=== PATIENT | female | born 1975 | race Caucasian/White ===

== ENCOUNTER 2017-04-25 17:58 | Emergency (ER) | payer SELFPAY ==
[2017-04-25 20:02] VITALS: BP 92/60
[2017-04-25] MEDS ORDERED: Cephalexin CAP* 500 MG PO ONE (20:26)
--- NOTE | 2017-04-25 20:26 | UC ---
Skin Complaint HPI - HPI Summary HPI Summary: 42 yo female with a 2 day hx of progressively worsening right inner thigh redness/swelling and pain feverish and chills no CP or SOB remote hx of IVDA with tricuspid endocarditis - History of Current Complaint Chief Complaint: UCSkin Time Seen by Provider: 04/25/17 20:04 Stated Complaint: LUMP ON LEG Hx Obtained From: Patient Hx Last Menstrual Period: one week ago Onset/Duration: Gradual Onset, Lasting Days Onset Severity: Mild Current Severity: Moderate Pain Intensity: 6 Pain Scale Used: 0-10 Numeric Character: Swelling, Pain, Redness, Raised, Painful Aggravating Factor(s): Touch, Other - wt bearing Associated Signs & Symptoms: Positive: Rash - Allergy/Home Medications Allergies/Adverse Reactions: Allergies Allergy/AdvReac Type Severity Reaction Status Date / Time No Known Allergies Allergy Verified 04/25/17 18:15 Review of Systems Constitutional: Negative Skin: Negative Eyes: Negative ENT: Negative Respiratory: Negative Cardiovascular: Negative Gastrointestinal: Negative Genitourinary: Negative Motor: Negative Neurovascular: Negative Musculoskeletal: Negative Neurological: Negative Psychological: Negative Is Patient Immunocompromised?: No All Other Systems Reviewed And Are Negative: Yes PMH/Surg Hx/FS Hx/Imm Hx Previously Healthy: Yes Cardiovascular History: 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 Other History Of: Negative For: Anticoagulant Therapy - Surgical History Surgical History: Yes Surgery Procedure, Year, and Place: wound drained by [facility] , bronchoscopy, mediastinoscopies, debridements - Social History Alcohol Use: Rare Substance Use Type: None Substance Use Comment - Amount & Last Used: Not now, past use,heroin, 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 Smoking Status (MU): Current Every Day Smoker Type: Cigarettes Amount Used/How Often: 1/2 ppd, 5-10 cigs per day Length of Time of Smoking/Using Tobacco: 20 YEARS Have You Smoked in the Last Year: Yes Household Exposure Type: Cigarettes - Immunization History Most Recent Influenza Vaccination: n/a Most Recent Tetanus Shot: pt thinks within 10 yrs Most Recent Pneumonia Vaccination: n/a Physical Exam Triage Information Reviewed: Yes Appearance: Well-Appearing, No Pain Distress, Well-Nourished Vital Signs: Initial Vital Signs Temp 98.8 F 04/25/17 18:10 Pulse 85 04/25/17 18:10 Resp 18 04/25/17 18:10 BP 126/73 04/25/17 18:10 Pulse Ox 100 04/25/17 18:10 Vital Signs Reviewed: Yes Eyes: Positive: Conjunctiva Clear ENT: Positive: Hearing grossly normal. Negative: Nasal congestion, Nasal drainage, Muffled voice, Uvula midline Neck: Positive: Supple, Nontender, No Lymphadenopathy Respiratory: Positive: Lungs clear, Normal breath sounds, No respiratory distress Cardiovascular: Positive: RRR, No Murmur. Negative: Tachycardia, Bradycardia Musculoskeletal: Positive: Other: - see image Course/Dx - Course Course Of Treatment: I discussed my concerns with patient. Most worrisome in the differential of this patient are DVT and deep thigh infection. I explained she should go to the ER for a higher level of care. She refuses EMS transfer. Aware of the risk of fatal PE or sepsis should one of these be the cause of her symptoms. She states she will go to the ER tonight - Diagnoses Provider Diagnoses: right thigh redness and swelling of uncertain cause. ?DVT Discharge - Discharge Plan Condition: Guarded Disposition: AGAINST MEDICAL ADVICE Referrals: No Primary Care Phys,NOPCP [Primary Care Provider] - Additional Instructions: please go directly to the ER for evaluation You may have a DVT (deep venous thrombosis) which can lead to a pulmonary embolism (potentially life threatening) Images Front/Back of Body, Lg ([place]): 1 - 15 cm cephalad to patella. Right thigh 49 cm. left thigh 44 cm 2 - ? palpable varix 3 - warm and erthyematous
== END 2017-04-25 20:20 | disposition left against medical advice (07) ==
LOC: UCEAST 17:58
DX: R23.8 Other skin changes (principal); R22.41 Localized swelling, mass and lump, right lower limb; Z72.0 Tobacco use
CPT/HCPCS: 99212; A9270-GY; G0463

== ENCOUNTER 2017-04-26 09:36 | Emergency (ER) | payer SELFPAY ==
--- NOTE | 2017-04-26 11:42 | RAD ---
INDICATION: Soft tissue swell medial right thigh COMPARISON: None TECHNIQUE: Transverse and longitudinal scans of the medial right thigh were performed utilizing grayscale and color Doppler imaging. FINDINGS: The right saphenous is thrombosed at the imaged level. The thrombosis extends to the saphenofemoral junction but the imaged deep venous system (the common femoral vein) is patent. IMPRESSION: THROMBOSIS OF THE GREAT SAPHENOUS VEIN EXTENDING TO THE SAPHENOFEMORAL JUNCTION CONSISTENT WITH SUPERFICIAL THROMBOPHLEBITIS. IF THERE IS CONCERN FOR DEEP VENOUS THROMBOSIS, SUGGEST LOWER EXTREMITY DUPLEX IMAGING.
[2017-04-26 11:59] LABS: Hematocrit 40 % (35-47); Hemoglobin 13.5 g/dl (12.0-16.0); Mean Corpuscular HGB Conc 34 g/dl (31-36); Mean Corpuscular Hemoglobin 29 pg (27-31); Mean Corpuscular Volume 86 fL (80-97); Mean Platelet Volume 7 um3 (7.4-10.4); Red Cell Distribution Width 14 % (10.5-15)
[2017-04-26 12:11] LABS: ALT 8 U/L (7-52); AST 10 U/L (13-39); Albumin 3.7 g/dL (3.2-5.2); Alkaline Phosphatase 47 U/L (34-104); Anion Gap 4 mmol/L (2-11); BUN/Creatinine Ratio 22.7 (8-20); Blood Urea Nitrogen 17 mg/dL (6-24); C Reactive Protein 21.65 mg/L (< 5.00); CO2 Carbon Dioxide 27 mmol/L (22-32); Calcium 9.2 mg/dL (8.6-10.3); Chloride 105 mmol/L (101-111); EGFR African American 110.1 (>60); EGFR Non-African American 85.6 (>60); Globulin 3.3 g/dL (2-4); Glucose 100 mg/dL (70-100); Potassium 4.1 mmol/L (3.5-5.0); Sodium 136 mmol/L (133-145)
--- NOTE | 2017-04-26 12:56 | RAD ---
INDICATION: Right-sided saphenofemoral junction thrombosis. COMPARISON: Soft tissue sonogram same date. TECHNIQUE: Duplex interrogation of the right lowerextremity was performed. The contralateral saphenofemoral junction was interrogated as well. FINDINGS: Deep veins: The common femoral, great saphenous, profunda femoris, proximal, mid, and distal deep femoral, popliteal, posterior tibial, and peroneal veins are patent. There is normal compressibility, augmentation, and phasic flow. Superficial veins: There is thrombus within the right great saphenous at the saphenofemoral junction. This is bilateral. Popliteal fossa:There is no evidence of a popliteal cyst. Soft tissues:There are no soft tissue abnormalities. IMPRESSION: NO EVIDENCE OF DEEP VENOUS THROMBOSIS. BILATERAL SAPHENOFEMORAL JUNCTION THROMBOSIS WITHOUT EXTENSION INTO COMMON FEMORAL VEIN. THIS PATIENT IS AT RISK FOR EXTENSION INTO THE COMMON FEMORAL VEIN (DVT) AND THEREFORE CLOSE FOLLOW-UP VERSUS ANTICOAGULATION SHOULD BE CONSIDERED.
--- NOTE | 2017-04-26 14:11 | ED ---
Chandrika Mckeon Emily, scribed for Aristeo Leger MD on 04/26/17 at 1200 . Lower Extremity - HPI Summary HPI Summary: This patient is a 42 year old F presenting to [facility] with a chief complaint of painful lump on upper RLE that began 2 days ago. The patient rates the pain 6/ 10 in severity. Symptoms aggravated by nothing. Symptoms alleviated by nothing. Patient reports fever and nasal drainage. Patient denies CP and SOB. Pt denies any recent long distance travel. Pt reports sick contacts at home. Medications reviewed. - History of Current Complaint Chief Complaint: EDExtremityLower Stated Complaint: ULTRASOUND-CC LAST NIGHT Time Seen by Provider: 04/26/17 11:50 Hx Obtained From: Patient Hx Last Menstrual Period: one week ago Onset of Pain: Immediate, Days Onset/Duration: Still Present Severity Initially: Moderate Severity Currently: Moderate Pain Intensity: 6 Pain Scale Used: 0-10 Numeric Timing: Constant Associated Signs And Symptoms: Positive: Fever Aggravating Factor(s): Nothing Alleviating Factor(s): Nothing - Allergies/Home Medications Allergies/Adverse Reactions: Allergies Allergy/AdvReac Type Severity Reaction Status Date / Time No Known Allergies Allergy Verified 04/26/17 10:02 PMH/Surg Hx/FS Hx/Imm Hx Previously Healthy: No Endocrine/Hematology History: Denies: Hx Anticoagulant Therapy, Hx Diabetes, Hx Thyroid Disease Cardiovascular History: Denies: Hx Hypertension Respiratory History: Denies: Hx Asthma, Hx Chronic Obstructive Pulmonary Disease (COPD) GI History: Denies: Hx Ulcer Psychiatric History: Reports: Hx Substance Abuse Denies: Hx Eating Disorder - Surgical History Surgery Procedure, Year, and Place: wound drained by [facility] , bronchoscopy, mediastinoscopies, debridements - Immunization History Date of Tetanus Vaccine: PT STATES UNSURE Date of Influenza Vaccine: NONE Infectious Disease History: No Infectious Disease History: Reports: 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 hip Denies: Hx Clostridium Difficile, Hx Hepatitis, Hx Human Immunodeficiency Virus (HIV), Hx Shingles, Hx Tuberculosis, Hx Known/Suspected VRE, Hx Known/ Suspected VRSA, History Other Infectious Disease, Traveled Outside the [place] in Last 30 Days - Family History Known Family History: Positive: Other - AFib - Social History Occupation: Employed Full-time Lives: Alone Alcohol Use: Occasionally Substance Use Type: Reports: Marijuana Substance Use Comment - Amount & Last Used: Not now, past use,heroin, 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 Smoking Status (MU): Current Every Day Smoker Type: Cigarettes Amount Used/How Often: 1/2 ppd, 5-10 cigs per day Length of Time of Smoking/Using Tobacco: 20 YEARS Have You Smoked in the Last Year: Yes Review of Systems Positive: Fever Positive: Nasal Discharge Negative: Chest Pain Negative: Shortness Of Breath Positive: Other - Positive RLE pain Positive: Other - Positive lump on upper RLE All Other Systems Reviewed And Are Negative: Yes Physical Exam Triage Information Reviewed: Yes Vital Signs On Initial Exam: Initial Vitals Temp Pulse Resp BP Pulse Ox 98.1 F 91 16 122/80 100 04/26/17 09:38 04/26/17 09:38 04/26/17 09:38 04/26/17 09:38 04/26/17 09:38 Vital Signs Reviewed: Yes Appearance: Positive: Well-Appearing, No Pain Distress Skin: Positive: Warm, Dry, Other - Firm, warm erythematous area on upper, inner right thigh. It is mildly tender to palpation Head/Face: Positive: Normal Head/Face Inspection Eyes: Positive: EOMI, ANSON ENT: Positive: Normal ENT inspection Neck: Positive: Supple, Nontender Respiratory/Lung Sounds: Positive: Clear to Auscultation Cardiovascular: Positive: RRR, Other - Good pulses distally Abdomen Description: Positive: Nontender, Soft Bowel Sounds: Positive: Present Musculoskeletal: Positive: Normal, Strength/ROM Intact Neurological: Positive: Normal, Sensory/Motor Intact, Alert, Oriented to Person Place, Time Psychiatric: Positive: Affect/Mood Appropriate - [place] Coma Scale Coma Scale Total: 15 Diagnostics - Vital Signs Vital Signs Temp Pulse Resp BP Pulse Ox 04/26/17 11:35 119/72 04/26/17 11:30 17 04/26/17 11:00 25 04/26/17 10:30 82 23 107/66 99 04/26/17 10:02 109/73 04/26/17 10:00 89 100 04/26/17 09:38 98.1 F 91 16 122/80 100 - Laboratory Lab Results: Lab Results 04/26/17 04/26/17 04/26/17 Range/Units 11:48 11:48 11:48 WBC 6.0 (3.5-10.8) 10^3/ul RBC 4.60 (4.0-5.4) 10^6/ul Hgb 13.5 (12.0-16.0) g/dl Hct 40 (35-47) % MCV 86 (80-97) fL MCH 29 (27-31) pg MCHC 34 (31-36) g/dl RDW 14 (10.5-15) % Plt Count 264 (150-450) 10^3/ul MPV 7 L (7.4-10.4) um3 Neut % (Auto) 61.0 (38-83) % Lymph % (Auto) 23.8 L (25-47) % [place] % (Auto) 11.4 H (1-9) % Eos % (Auto) 2.1 (0-6) % Baso % (Auto) 1.7 (0-2) % Absolute Neuts (auto) 3.7 (1.5-7.7) 10^3/ul Absolute Lymphs (auto) 1.4 (1.0-4.8) 10^3/ul Absolute Monos (auto) 0.7 (0-0.8) 10^3/ul Absolute Eos (auto) 0.1 (0-0.6) 10^3/ul Absolute Basos (auto) 0.1 (0-0.2) 10^3/ul Absolute Nucleated RBC 0 10^3/ul Nucleated RBC % 0 INR (Anticoag Therapy) 0.92 (0.77-1.02) APTT 29.5 (26.0-36.3) seconds Sodium 136 (133-145) mmol/L Potassium 4.1 (3.5-5.0) mmol/L Chloride 105 (101-111) mmol/L Carbon Dioxide 27 (22-32) mmol/L Anion Gap 4 (2-11) mmol/L BUN 17 (6-24) mg/dL Creatinine 0.75 (0.51-0.95) mg/dL Est GFR ( Amer) 110.1 (>60) Est GFR (Non-Af Amer) 85.6 (>60) BUN/Creatinine Ratio 22.7 H (8-20) Glucose 100 (70-100) mg/dL Calcium 9.2 (8.6-10.3) mg/dL Total Bilirubin 0.20 (0.2-1.0) mg/dL AST 10 L (13-39) U/L ALT 8 (7-52) U/L Alkaline Phosphatase 47 (34-104) U/L C-Reactive Protein 21.65 H (< 5.00) mg/L Total Protein 7.0 (6.4-8.9) g/dL Albumin 3.7 (3.2-5.2) g/dL Globulin 3.3 (2-4) g/dL Albumin/Globulin Ratio 1.1 (1-3) Beta HCG, Quant < 0.60 mIU/mL Result Diagrams: 04/26/17 11:48 04/26/17 11:48 Lab Statement: Any lab studies that have been ordered have been reviewed, and results considered in the medical decision making process. - Additional Comments Diagnostic Additional Comments: Soft Tissue US reveals, per radiologist, thrombosis of the great saphenous vein extending to the saphenofemoral junction consistent with superficial thrombophlebitis. If there is concern for deep venous thrombosis, suggest lower extremity duplex imaging. Dr. Leger has reviewed this radiology report. Venous Doppler US reveals, per radiologist, no evidence of deep venous thrombosis. Bilateral saphenofemoral junction thrombosis without extension into common femoral vein. This patient is at risk for extension into the common femoral vein (DVT) and therefore close follow-up versus anticoagulation should be considered. Dr. Leger has reviewed this radiology report. Re-Evaluation - Re-Evaluation First Eval Re-Evaluation Time: 13:55 Change: Improved Lower Extremity Course/Dx - Course Course Of Treatment: DISCUSSED RESULTS WITH PATIENT. WITH THE EXTENT OF SAPHENOUS THROMBOSIS TO THE SAPHENOFEMORAL JUNCTION, WILL RX XARELTO. #6 DISPENSED TO ALLOW FOR SOCIAL WORK/INSURANCE/PMD ORGANIZATION TO BE ABLE TO FILL THE XARELTO RX. F/U PMD; RETURN IF WORSE. - Diagnoses Provider Diagnoses: DVT of axillary vein, acute bilateral - Physician Notifications Discussed Care Of Patient With: Sohail Henson Time Discussed With Above Provider: 12:53 Instructed by Provider To: Other - Consult with Dr. Henson (hospitalist) at 1253. Discussed plan of care of patient. Consult with Dr. Castillo (hematology and oncology) at Discharge - Discharge Plan Condition: Stable Disposition: HOME Prescriptions: Rivaroxaban TAB(*) [Xarelto 15 mg(*)] 15 mg PO BID #36 tab Patient Education Materials: Deep Venous Thrombosis (ED) Referrals: [facility] PHYSICIAN REFERRAL [Outside] No Primary Care Phys,NOPCP [Primary Care Provider] - Additional Instructions: FOLLOW UP WITH YOUR DOCTOR. THE XARELTO IS 15MG TWICE A DAY FOR 21 DAYS. THEN IT IS 20MG ONCE A DAY. SEE YOUR DOCTOR FOR FURTHER EVALUATION AND TREATMENT. RETURN TO THE EMERGENCY DEPARTMENT FOR ANY WORSENING OF YOUR CONDITION; LEG PAIN , SHORTNESS OF BREATH, CHEST PAIN OR QUESTIONS OR CONCERNS. The documentation as recorded by the Chandrika polanco Emily accurately reflects the service I personally performed and the decisions made by me, Aristeo Leger MD.
[2017-04-26 14:36] VITALS: BP 121/74
== END 2017-04-26 14:37 | disposition home or self-care (01) ==
LOC: ED 09:36
DX: I82.A13 Acute embolism and thrombosis of axillary vein, bilateral (principal)
CPT/HCPCS: 36415; 80053; 84702; 85025; 85610; 85730; 86140; 99283

== ENCOUNTER 2019-03-31 13:04 | Emergency (ER) | payer OTHER ==
--- NOTE | 2019-03-31 14:32 | UC ---
Hand/Wrist HPI - HPI Summary HPI Summary: 43-year-old female who was cleaning [place] window is 11 fell onto her proximal left forearm on Friday, 2 days ago. She had pain at the beginning and then since then she has had continued pain to the proximal forearm and today with some swelling, warmth and redness. Denies any cuts. - History Of Current Complaint Chief Complaint: UCUpperExtremity Stated Complaint: ARM INJURY Time Seen by Provider: 03/31/19 14:29 Hx Obtained From: Patient Hx Last Menstrual Period: 02/28/19 ?: No Onset/Duration: Sudden Onset Severity Initially: Mild Severity Currently: Moderate Pain Intensity: 9 Character Of Pain: Dull, Aching Aggravating Factor(s): Movement, Flexion, Extension, Internal/External Rotation , Twisting Alleviating Factor(s): Nothing Associated Signs And Symptoms: Positive: Swelling, Redness - Allergies/Home Medications Allergies/Adverse Reactions: Allergies Allergy/AdvReac Type Severity Reaction Status Date / Time No Known Allergies Allergy Verified 03/31/19 13:48 Home Medications: Home Medications ALPRAZolam TAB* [Xanax TAB*] 0.5 mg PO TID PRN 03/31/19 [History Confirmed 03/31] Dextroamphetamine Sulfate [Zenzedi] 10 mg PO BID 03/31/19 [History Confirmed ] Ibuprofen TAB* [Motrin TAB* 800 MG] 800 mg PO ONCE 03/31/19 [History Confirmed 03/31/19] Methamphetamine HCl [Desoxyn] 5 mg PO DAILY 03/31/19 [History Confirmed 03/31/19 ] PMH/Surg Hx/FS Hx/Imm Hx Previously Healthy: Yes Other History Of: Negative For: Anticoagulant Therapy - Surgical History Surgical History: Yes Surgery Procedure, Year, and Place: wound drained by [facility] , bronchoscopy, mediastinoscopies, debridements - Family History Known Family History: Positive: Other - AFib - Social History Alcohol Use: None Substance Use Type: None Substance Use Comment - Amount & Last Used: Not now, past use,heroin, 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 Musculoskeletal: Positive: Decreased ROM - Pain with range of motion left forearm. Is Patient Immunocompromised?: No Physical Exam Triage Information Reviewed: Yes Appearance: Well-Appearing, No Pain Distress, Well-Nourished Vital Signs: Initial Vital Signs Temp 98.4 F 03/31/19 13:50 Pulse 103 03/31/19 13:50 Resp 18 03/31/19 13:50 BP 127/82 03/31/19 13:50 Pulse Ox 100 03/31/19 13:50 Vital Signs Reviewed: Yes Musculoskeletal: Positive: Strength Intact, ROM Intact, Other: - Range of motion is painful one done flexion and extension. Good peripheral pulses, neuro sensation and capillary refill. The proximal forearm is swollen, warm, edematous and tender on palpation. Neurological: Positive: Alert, Muscle Tone Normal Psychological Exam: Normal Skin: Positive: Other - See above notes. Hand/Wrist Course/Dx - Course Course Of Treatment: X-ray left forearm: negative Venous doppler left forearm: FINDINGS: The axillary, brachial, basilic and cephalic veins all demonstrate normal compressibility, augmentation with compression and phasic response with respiration. The radial and ulnar veins demonstrate normal compressibility. The subclavian and internal jugular veins also demonstrate normal color flow imaging and phasic response with respiration. There is edema tracking in the muscles along the anterior proximal forearm suggesting the possibility of muscle injury. IMPRESSION: 1. NO EVIDENCE FOR DEEP VENOUS THROMBOSIS. 2. EDEMA IN THE MUSCLES IN THE PROXIMAL FOREARM SUGGESTING THE POSSIBILITY OF A MUSCLE INJURY. She is to apply heat to the sore area elevate as much as possible take ibuprofen as directed for pain and follow-up with the orthopedist if no improvement by early next week and to go to the emergency room if she has any worsening symptoms, numbness in her hand, change in color or temperature of her skin. - Differential Dx/Diagnosis Provider Diagnosis: Contusion of forearm, left, Cellulitis of forearm, left Discharge ED - Sign-Out/Discharge Documenting (check all that apply): Patient Departure All imaging exams completed and their final reports reviewed: Yes - Discharge Plan Condition: Fair Disposition: HOME Prescriptions: Cephalexin CAP* [Keflex 500 CAP*] 500 mg PO TID 10 Days #30 cap Patient Education Materials: Contusion in Adults (ED), Cellulitis (DC) Forms: *Work Release Referrals: No Primary Care Phys,NOPCP [Primary Care Provider] - Nery Breen MD [Medical Doctor] - Additional Instructions: Apply warm moist compresses to the sore red area. Elevate as much as possible. Take ibuprofen every 8 hours for pain and for swelling. Avoid movements that cause pain. Definite follow-up with the orthopedist in 4 or 5 days if no improvement. - Billing Disposition and Condition Condition: FAIR Disposition: Home
[2019-03-31 17:09] VITALS: BP 130/88
== END 2019-03-31 17:08 | disposition home or self-care (01) ==
LOC: UCEAST 13:04
DX: L03.114 Cellulitis of left upper limb (principal); S50.12XA Contusion of left forearm, initial encounter; F17.210 Nicotine dependence, cigarettes, uncomplicated; W19.XXXA Unspecified fall, initial encounter; Y92.9 Unspecified place or not applicable
CPT/HCPCS: 99211; G0463